=== PATIENT | female | born 1965 | race Caucasian/White ===

== ENCOUNTER 2023-06-22 05:30 | Inpatient (IN) | payer BC ==
[~2023-06-22] VITALS: Ht 162.6 cm; Wt 90.7 kg
[2023-06-22] MEDS ORDERED: oxyCODONE HCL 10 MG TAB.ER.12H PO ONE ×2 (05:47→06:00)
[2023-06-22] MEDS ORDERED: SCOPOLAMINE HYDROBROMIDE 1 MG PATCH .72 H (TRANSDERM-SCOP) TD ONE ×2 (05:47→06:00)
[2023-06-22] MEDS ORDERED: ACETAMINOPHEN 500 MG TABLET ONE (05:47)
[2023-06-22] MEDS ORDERED: CELECOXIB 200 MG CAPSULE ONE (05:48)
[2023-06-22] MEDS ORDERED: GABAPENTIN 300 MG CAPSULE ONE (05:48)
[2023-06-22] MEDS ORDERED: TRANEXAMIC ACID 1,000 MG/10 ML VIAL IV ONE (06:00)
[2023-06-22] MEDS ORDERED: CELECOXIB 200 MG CAPSULE PO ONE (06:00)
[2023-06-22] MEDS ORDERED: GABAPENTIN 300 MG CAPSULE PO ONE (06:00)
[2023-06-22] MEDS ORDERED: ACETAMINOPHEN 500 MG TABLET PO ONE (06:00)
[2023-06-22] MEDS ORDERED: CEFAZOLIN SOD 2 GM in D5W 50 ML IV ONE (07:00)
[2023-06-22] MEDS ORDERED: ROCURONIUM BROMIDE 10 MG/ML (ZEMURON) ONE (07:15)
[2023-06-22] MEDS ORDERED: ONDANSETRON HCL 4 MG/2 ML VIAL ONE (07:15)
[2023-06-22] MEDS ORDERED: SUGAMMADEX SODIUM 200 MG/2 ML VIAL IV ONE (07:15)
[2023-06-22] MEDS ORDERED: fentaNYL CITRATE/PF 100 MCG/2 ML AMP ONE (07:15)
[2023-06-22] MEDS ORDERED: VANCOMYCIN HCL 1000 MG/VIAL IV ONE (07:15)
[2023-06-22] MEDS ORDERED: MIDAZOLAM HCL/PF 2 MG/2 ML SYRINGE ONE (07:15)
[2023-06-22] MEDS ORDERED: DESFLURANE 15 MIN GAS INH ONE (07:15)
[2023-06-22] MEDS ORDERED: MEPERIDINE HCL/PF 100 MG/ML VIAL ONE (07:15)
[2023-06-22] MEDS ORDERED: TRANEXAMIC ACID 1,000 MG/10 ML VIAL ONE (07:15)
[2023-06-22] MEDS ORDERED: DEXAMETHASONE SOD PHOSPHATE 4 MG/ML VIAL ONE (07:15)
[2023-06-22] MEDS ORDERED: KETOROLAC TROMETHAMINE 30 MG VIAL ONE (07:15)
[2023-06-22] MEDS ORDERED: PROPOFOL 200MG/ 20ML VIAL (DIPRIVAN) IV ONE (07:15)
[2023-06-22] MEDS ORDERED: BUPIVACAINE /PF 0.25% 30 ML VIAL INJ ONE (07:15)
[2023-06-22] MEDS ORDERED: ROPIVACAINE HCL/PF 5 MG/ML 0.5% 30 ML VIAL ONE (07:15)
[2023-06-22] MEDS ORDERED: TRAM50TA2 PO (07:16)
[2023-06-22] MEDS ORDERED: LORA10TA7 PO (07:16)
[2023-06-22] MEDS ORDERED: BISO1TAB98 PO (07:16)
[2023-06-22] MEDS ORDERED: IBUP-1970 PO (07:16)
[2023-06-22] MEDS ORDERED: VITD400 PO (07:16)
[2023-06-22] MEDS ORDERED: PRO20 PO (07:16)
[2023-06-22] MEDS ORDERED: MIDAZOLAM HCL 2 MG/2 ML VIAL (VERSED) IVP PRN (08:15)
[2023-06-22] MEDS ORDERED: METOCLOPRAMIDE HCL 10 MG/2 ML VIAL IVP PRN ×2 (08:15→10:15)
[2023-06-22] MEDS ORDERED: HYDROmorphone 1 MG/ML INJ. CARTRIDGE IVP PRN ×5 (08:15→11:00)
[2023-06-22] MEDS ORDERED: hydrALAZINE HCL 20 MG/ML VIAL IVP PRN (08:15)
[2023-06-22] MEDS ORDERED: LABETALOL 100 MG/ 20ML VIAL IVP PRN (08:15)
[2023-06-22] MEDS ORDERED: LR 1,000 ML IV SCH (08:15)
[2023-06-22] MEDS ORDERED: MEPERIDINE HCL/PF 25 MG/ML DISP.SYRIN IVP PRN (08:15)
[2023-06-22] MEDS ORDERED: LACTULOSE 20 GM/30 ML UDC PO PRN (10:15)
[2023-06-22] MEDS ORDERED: BISACODYL 10 MG/SUPPOSITORY RC PRN (10:15)
[2023-06-22] MEDS ORDERED: DIPHENHYDRAMINE HCL 25 MG CAPSULE PO PRN (10:15)
[2023-06-22] MEDS ORDERED: NALOXONE HCL 0.4 MG/ML AMP (NARCAN) IVP PRN ×2 (10:15)
[2023-06-22] MEDS ORDERED: NALOXONE HCL 2 MG/2 ML SYR IVP PRN (10:15)
[2023-06-22] MEDS: HYDROmorphone 1 MG/ML INJ. CARTRIDGE ONE ×2 (10:56→11:01)
[2023-06-22] MEDS ORDERED: LORATADINE 10 MG TABLET PO PRN (11:00)
[2023-06-22] MEDS ORDERED: oxyCODONE HCL 5 MG TABLET PO PRN ×2 (11:00)
[2023-06-22] MEDS ORDERED: traMADol HCL HCL 50 MG TABLET (ULTRAM) PO PRN (11:00)
[2023-06-22 11:30] VITALS: BP_SYST 149; PULSE 87; RESP 16; TEMP 97.7; O2SAT 94
[2023-06-22 11:33] VITALS: BP_SYST 142; PULSE 84; RESP 16; TEMP 98.3; O2SAT 96
[2023-06-22 11:44] VITALS: PULSE 86; O2SAT 96
[2023-06-22] MEDS ORDERED: ONDANSETRON HCL 4 MG/2 ML VIAL IVP PRN (11:45)
[2023-06-22] MEDS: ACETAMINOPHEN 500 MG TABLET PO SCH ×2 (14:07→21:49)
[2023-06-22] MEDS: KETOROLAC TROMETHAMINE 10 MG TABLET (TORADOL) PO SCH ×2 (14:08→21:48)
[2023-06-22] MEDS: ceFAZolin SODIUM 2 GM in D5W 50 ML IV SCH ×2 (14:21→21:50)
[2023-06-22 15:42] VITALS: BP_SYST 132; PULSE 77; RESP 15; TEMP 97.7; O2SAT 96
[2023-06-22 19:00] VITALS: BP_SYST 130; PULSE 79; RESP 16; TEMP 98.2; O2SAT 98
[2023-06-22 20:00] VITALS: BP_SYST 130; PULSE 79; RESP 16; TEMP 98.2; O2SAT 98
[2023-06-22] MEDS: SENNOSIDES/DOCUSATE SODIUM 1 TAB TABLET(SENOKOT-S) PO SCH (21:46)
[2023-06-23 01:51] VITALS: BP_SYST 114; PULSE 77; RESP 16; TEMP 98.9; O2SAT 96
[2023-06-23 05:01] LABS: BASOPHILS # (AUTO) 0.1 K/uL (0.0-0.2); BASOPHILS % (AUTO) 0.7 % (0.0-2.0); EOSINOPHILS # (AUTO) 0.1 K/uL (0.0-0.4); EOSINOPHILS % (AUTO) 0.6 % (0.0-4.0); HEMATOCRIT 41.9 % (36-48); HEMOGLOBIN 13.5 g/dL (12.0-16.0); LYMPHOCYTES # (AUTO) 2.3 K/uL (1.0-5.5); LYMPHOCYTES % (AUTO) 11.5 % (20.5-51.5); MEAN CORPUSCULAR HEMOGLOBIN 30 pg (27-31); MEAN CORPUSCULAR HGB CONC 32 % (32-36); MEAN CORPUSCULAR VOLUME 93 fL (79.0-98.0); MONOCYTES # (AUTO) 1.5 K/uL (0.0-1.0); MONOCYTES % (AUTO) 7.5 % (1.7-9.3); NEUTROPHILS # (AUTO) 15.7 K/uL (1.8-7.7); NEUTROPHILS % (AUTO) 79.7 % (40.0-70.0); PLATELET COUNT (AUTO) 298 K/uL (130-430); RED BLOOD CELL COUNT(AUTO) 4.48 MIL/uL (4.2-6.2); RED CELL DISTRIBUTION WIDTH 13.8 % (9.0-15.0); WHITE BLOOD COUNT (AUTO) 19.7 K/uL (4.8-10.8)
[2023-06-23 05:22] LABS: ALBUMIN 3.4 g/dL (3.4-4.8); CALCIUM 9.9 mg/dL (8.4-11.0); CREATININE 0.79 mg/dL (0.55-1.30); POTASSIUM 4.1 mmol/L (3.5-5.1); TOTAL BILIRUBIN 0.3 mg/dL (0.0-1.0); TOTAL PROTEIN, SERUM 7.2 g/dL (6.4-8.3)
[2023-06-23] MEDS: KETOROLAC TROMETHAMINE 10 MG TABLET (TORADOL) PO SCH (06:43)
[2023-06-23] MEDS: ACETAMINOPHEN 500 MG TABLET PO SCH ×2 (06:45→13:24)
[2023-06-23] MEDS: ceFAZolin SODIUM 2 GM in D5W 50 ML IV SCH (06:46)
[2023-06-23 08:00] VITALS: BP_SYST 98; PULSE 77; PULSE 78; RESP 18; TEMP 97.9; TEMP 99; O2SAT 98; O2SAT 99
[2023-06-23] MEDS: SENNOSIDES/DOCUSATE SODIUM 1 TAB TABLET(SENOKOT-S) PO SCH (08:28)
[2023-06-23] MEDS ORDERED: FLUoxetine HCL 20 MG CAPSULE (PROzac) PO SCH (09:00)
[2023-06-23] MEDS ORDERED: ATENOLOL 50 MG TABLET (TENORMIN) PO SCH (09:00)
[2023-06-23] MEDS ORDERED: ASPIRIN 81 MG TAB.CHEW PO SCH (09:00)
[2023-06-23] MEDS ORDERED: DECADRON 4 MG TABLET PO SCH (09:00)
[2023-06-23] MEDS ORDERED: HYDROCHLOROTHIAZIDE 12.5 MG CAPSULE (HCTZ) PO SCH (09:00)
[2023-06-23] MEDS ORDERED: CELECOXIB 200 MG CAPSULE PO SCH (11:00)
[2023-06-23 12:00] VITALS: BP_SYST 133; PULSE 71; RESP 18; TEMP 98; O2SAT 97
[2023-06-23 13:55] VITALS: BP_SYST 135; PULSE 77; RESP 18; TEMP 98.3; O2SAT 94
[2023-06-23] MEDS ORDERED: ASA81 PO (14:17)
[2023-06-23 16:13] VITALS: O2SAT 95
== END 2023-06-23 15:15 | disposition home health service (06) | DRG 470 ==
LOC: SMU 05:30
PROVIDERS: ADMIT Student in an Organized Health Care Education/Training Program; ATTEND Student in an Organized Health Care Education/Training Program
PROC: 0SRD0J9 Replacement of Left Knee Joint with Synthetic Substitute, Cemented, Open Approach (ICD-10-PCS; principal; 2023-06-22 07:30)
DX: M17.12 Unilateral primary osteoarthritis, left knee (principal)
CPT/HCPCS: 36415; 73560-TC; 80053; 85025; 87081; 88305; 88311; 94010; 94760; 96379; 97110-GP; 97116-GP; 97530-GP; C1776; J0690; J1100; J1170; J1885; J2175; J2405; J2704; J3010; J3370; J3465; J3490; J7060; J8540

== ENCOUNTER 2024-03-26 05:25 | Day surgery (SDC) | payer BC ==
[~2024-03-26] VITALS: Ht 162.6 cm; Wt 84.1 kg
[~2024-03-26 05:25] MED LIST: ASA81 PO; BISO1TAB98 PO; CEFAZOLIN SOD 2 GM in D5W 50 ML IV ONE; IBUP-1970 PO; LORA10TA7 PO; PRO20 PO; VITD400 PO
[2024-03-26] MEDS ORDERED: CELECOXIB 100 MG CAPSULE ONE (05:37)
[2024-03-26] MEDS ORDERED: oxyCODONE HCL 10 MG TAB.ER.12H PO ONE (05:38)
[2024-03-26] MEDS ORDERED: SCOPOLAMINE HYDROBROMIDE 1 MG PATCH .72 H (TRANSDERM-SCOP) TD ONE (05:38)
[2024-03-26] MEDS ORDERED: ACETAMINOPHEN 500 MG TABLET ONE (05:38)
[2024-03-26] MEDS ORDERED: GABAPENTIN 300 MG CAPSULE ONE (05:39)
[2024-03-26] MEDS: CELECOXIB 100 MG CAPSULE PO ONE (06:05)
[2024-03-26] MEDS: ACETAMINOPHEN 500 MG TABLET PO PRN (06:05)
[2024-03-26] MEDS: GABAPENTIN 300 MG CAPSULE PO ONE (06:05)
[2024-03-26] MEDS: SCOPOLAMINE HYDROBROMIDE 1 MG PATCH .72 H (TRANSDERM-SCOP) TD ONE (06:05)
[2024-03-26] MEDS ORDERED: CEFAZOLIN SOD 2 GM in D5W 50 ML IV ONE (07:00)
[2024-03-26] MEDS ORDERED: VANCOMYCIN HCL 1000 MG/VIAL IV ONE (07:03)
[2024-03-26] MEDS ORDERED: DEXAMETHASONE SOD PHOSPHATE 4 MG/ML VIAL ONE (07:03)
[2024-03-26] MEDS ORDERED: NS IRRIG SOLN 1000 ML IR ONE (07:03)
[2024-03-26] MEDS ORDERED: BUPIVACAINE /PF 0.25% 30 ML VIAL INJ ONE (07:03)
[2024-03-26] MEDS ORDERED: PROPOFOL 200MG/ 20ML VIAL (DIPRIVAN) IV ONE (07:03)
[2024-03-26] MEDS ORDERED: TRANEXAMIC ACID 1,000 MG/10 ML VIAL ONE (07:03)
[2024-03-26] MEDS ORDERED: ROPIVACAINE 40 MG/20 ML AMP EP ONE (07:03)
[2024-03-26] MEDS ORDERED: ceFAZolin SODIUM 1 GM VIAL ONE (07:03)
[2024-03-26] MEDS ORDERED: LR 1,000 ML IV.SOLN IV ONE (07:03)
[2024-03-26] MEDS ORDERED: HYDROmorphone 2 MG/ML VIAL ONE ×2 (07:03→07:18)
[2024-03-26] MEDS ORDERED: ONDANSETRON HCL 4 MG/2 ML VIAL ONE (07:03)
[2024-03-26] MEDS ORDERED: MIDAZOLAM HCL 2 MG/2 ML VIAL (VERSED) ONE ×2 (07:03→07:18)
[2024-03-26] MEDS ORDERED: ROCURONIUM BROMIDE 10 MG/ML (ZEMURON) ONE (07:03)
[2024-03-26] MEDS ORDERED: WATER FOR IRRIGATION,STERILE 1,000 ML IRRIG.SOLN IR ONE (07:03)
[2024-03-26] MEDS: oxyCODONE HCL 10 MG TAB.ER.12H PO ONE (07:15)
[2024-03-26] MEDS ORDERED: PROPOFOL DRIP 100 ML IV ONE (07:17)
[2024-03-26] MEDS ORDERED: KETAMINE HCL IN 0.9 % NACL 50 MG/5 ML SYRINGE ONE (07:19)
[2024-03-26] MEDS ORDERED: LACTULOSE 20 GM/30 ML UDC PO PRN (10:00)
[2024-03-26] MEDS ORDERED: METOCLOPRAMIDE HCL 10 MG/2 ML VIAL IVP PRN (10:00)
[2024-03-26] MEDS ORDERED: BISACODYL 10 MG/SUPPOSITORY RC PRN (10:00)
[2024-03-26] MEDS ORDERED: hydrALAZINE HCL 20 MG/ML VIAL IV PRN (10:30)
[2024-03-26] MEDS ORDERED: ONDANSETRON HCL 4 MG/2 ML VIAL IVP PRN ×2 (10:30→11:45)
[2024-03-26] MEDS ORDERED: NALOXONE HCL 0.4 MG/ML AMP (NARCAN) IVP PRN (10:30)
[2024-03-26] MEDS ORDERED: HYDROmorphone 1 MG/ML INJ. CARTRIDGE IVP PRN ×4 (10:30→11:00)
[2024-03-26] MEDS ORDERED: HYDROmorphone 1 MG/ML INJ. CARTRIDGE ONE ×3 (10:33→14:10)
[2024-03-26] MEDS: HYDROmorphone 1 MG/ML INJ. CARTRIDGE IVP PRN ×2 (10:34→14:10)
[2024-03-26] MEDS ORDERED: LORATADINE 10 MG TABLET PO PRN (11:00)
[2024-03-26] MEDS ORDERED: oxyCODONE HCL 5 MG TABLET PO PRN ×2 (11:00)
[2024-03-26] MEDS ORDERED: traMADol HCL HCL 50 MG TABLET (ULTRAM) PO PRN (11:00)
[2024-03-26] MEDS: TAMSULOSIN HCL 0.4 MG CAP PO ONE (12:08)
[2024-03-26] MEDS ORDERED: DIPHENHYDRAMINE HCL 25 MG CAPSULE PO PRN (13:00)
[2024-03-26 13:13] VITALS: BP_SYST 132; PULSE 61; RESP 18; TEMP 98.6; O2SAT 97
[2024-03-26] MEDS ORDERED: ACETAMINOPHEN 500 MG TABLET PO SCH (14:00)
[2024-03-26] MEDS ORDERED: KETOROLAC TROMETHAMINE 10 MG TABLET (TORADOL) PO SCH (14:00)
[2024-03-26] MEDS ORDERED: ceFAZolin SODIUM 2 GM in D5W 50 ML IV SCH (16:00)
[2024-03-26] MEDS ORDERED: SENNOSIDES/DOCUSATE SODIUM 1 TAB TABLET(SENOKOT-S) PO SCH (21:00)
[2024-03-27] MEDS ORDERED: TAMSULOSIN HCL 0.4 MG CAP PO SCH (09:00)
[2024-03-27] MEDS ORDERED: DECADRON 4 MG TABLET PO SCH (09:00)
[2024-03-27] MEDS ORDERED: ASPIRIN 81 MG TAB.CHEW PO SCH (09:00)
[2024-03-27] MEDS ORDERED: CELECOXIB 200 MG CAPSULE PO SCH (11:00)
== END 2024-03-26 16:20 | disposition home or self-care (01) ==
LOC: SDS 05:25 → SMU 05:25 → SDS 16:20
PROVIDERS: ATTEND Student in an Organized Health Care Education/Training Program
DX: M17.11 Unilateral primary osteoarthritis, right knee (principal); I10 Essential (primary) hypertension; Z90.710 Acquired absence of both cervix and uterus; Z86.16 Personal history of COVID-19; Z98.890 Other specified postprocedural states; Z79.899 Other long term (current) drug therapy
CPT/HCPCS: 87081; 27447; 97162; 64447; 73560; 96379; 97116; 88305; 88311; J3490 ×2; J0690; J1100; J3465; J2405; J2704 ×2; J2795; J3370; J1170 ×2; J7060 ×2; J7120; C1776 ×4; C1713; J0696